=== PATIENT | female | born 1995 | race Two or more races ===

== ENCOUNTER 2024-10-05 18:12 | Inpatient (IN) | payer OTHER ==
[~2024-10-05] VITALS: Ht 157.5 cm; Wt 68.0 kg
[2024-10-05] MEDS ORDERED: RINGERS SOLUTION,LACTATED 1,000 ML IV SCH (18:30)
[2024-10-05 18:45] VITALS: BP 120/77
[2024-10-05] MEDS ORDERED: PRENATAL CAPLE1 EAC1 PO (19:23)
[2024-10-05 19:36] LABS: HEMATOCRIT 38.5 % (36.0-45.00); HEMOGLOBIN 12.9 g/dL (12.0-15.00); MEAN CELL VOLUME 83.9 fL (80.00-100.00); MEAN CORPUSCULAR HEMOGLOBIN 28.1 pg (27.00-32.0); MEAN CORPUSCULAR HGB CONC 33.5 g/dl (32.0-36.0); PH,URINE 6.5 (5.0-8.0); PLATELET COUNT 224 K/uL (150-450); RED BLOOD COUNT 4.59 M/uL (4.00-6.00); URINE APPEARANCE Clear; URINE BILIRRUBIN Negative (NEGATIVE); URINE BLOOD Moderate; URINE COLOR Yellow; URINE GLUCOSE Negative (NEGATIVE); URINE KETONE 15 (NEGATIVE); URINE LEUKOCYTE Trace; URINE NITRATE Negative; URINE PROTEIN Negative (NEGATIVE); URINE UROBILINOGEN 0.2 E.U./dl
[2024-10-05 19:37] LABS: URINE BACTERIA 677.7 uL (0.0-1933); URINE EPITHELIAL CELLS 13.1 uL (0.0-38.8); URINE WBC 8.1 uL (0.0-23.2)
[2024-10-05 19:40] LABS: URINE CAST 0.15 uL (0.0-1.40); URINE RBC 0.7 uL (0.0-20.8)
[2024-10-05 20:09] LABS: INR < 0.93; PARTIAL THROMBOPLASTIN TIME 26.8 SECONDS (22.0-34.0); PROTHROMBIN TIME 9.9 SECONDS (9.0-11.5)
[2024-10-05 21:35] VITALS: BP 113/78
[2024-10-06] VITALS (7 sets, daily range): BP systolic 103–141; BP diastolic 53–77
[2024-10-06] MEDS ORDERED: OXYTOCIN 500 ML IV SCH (13:15)
[2024-10-06] MEDS ORDERED: MEPERIDINE HCL/PF 50 MG/ML VIAL IV STA (16:32)
[2024-10-06] MEDS ORDERED: PROMETHAZINE HCL 25 MG/ML AMPUL IV STA (16:33)
[2024-10-06] MEDS ORDERED: MEPERIDINE HCL/PF 50 MG/ML VIAL IV ONE (19:30)
[2024-10-06] MEDS ORDERED: PROMETHAZINE HCL 25 MG/ML AMPUL IV ONE (19:45)
[2024-10-07] MEDS ORDERED: ACETAMINOPHEN 500 MG GEL..CAP PO PRN (00:45)
[2024-10-07] MEDS ORDERED: CHLORHEXIDINE GLUCONATE 120 ML BOTTLE TOP SCH (00:45)
[2024-10-07] MEDS ORDERED: OXYTOCIN 1,000 ML IV SCH (00:45)
[2024-10-07 01:18] VITALS: BP 124/74
[2024-10-07] MEDS ORDERED: METHYLERGONOVINE MALEATE 0.2 MG/ML AMPUL IM ONE (01:30)
[2024-10-07 01:32] VITALS: BP 127/60
[2024-10-07 01:47] VITALS: BP 129/70
[2024-10-07 02:03] VITALS: BP 130/74
[2024-10-07 03:24] VITALS: BP 110/66
[2024-10-07 07:23] LABS: HEMOGLOBIN 11.6 g/dL (12.0-15.00); MEAN CELL VOLUME 85.5 fL (80.00-100.00); MEAN CORPUSCULAR HEMOGLOBIN 28.3 pg (27.00-32.0); MEAN CORPUSCULAR HGB CONC 33.1 g/dl (32.0-36.0); PLATELET COUNT 191 K/uL (150-450)
[2024-10-07 08:09] VITALS: BP 114/69
[2024-10-07] MEDS ORDERED: PNV,CALCIUM 72/IRON/FOLIC ACID 1 TAB TABLET PO SCH (09:00)
[2024-10-08 01:49] VITALS: BP 107/67
[2024-10-08 08:50] VITALS: BP 112/72
[2024-10-08 17:20] VITALS: BP 126/81
[2024-10-09 00:17] VITALS: BP 114/68
[2024-10-09 13:42] VITALS: BP 129/85
== END 2024-10-09 18:25 | disposition home or self-care (01) | DRG 807 ==
LOC: EDBD 18:12 → LDR 18:12 → OB/GYN 10-07 01:17
PROVIDERS: ADMIT Obstetrics & Gynecology; ATTEND Obstetrics & Gynecology
PROC: 4A1HXCZ Monitoring of Products of Conception, Cardiac Rate, External Approach (ICD-10-PCS; 2024-10-05)
PROC: 10E0XZZ Delivery of Products of Conception, External Approach (ICD-10-PCS; principal; 2024-10-07)
DX: O80 Encounter for full-term uncomplicated delivery (principal); Z37.0 Single live birth; Z3A.37 37 weeks gestation of pregnancy; Z20.822 Contact with and (suspected) exposure to COVID-19